=== PATIENT | male | born 1975 | race African-American/Black ===

== ENCOUNTER 2019-11-07 08:04 | Emergency (ER) | payer OTHER ==
[~2019-11-07] VITALS: Ht 190.5 cm; Wt 172.4 kg
[2019-11-07] MEDS ORDERED: BLOOD PRESSURE MED (08:17)
[2019-11-07 12:10] LABS: HEMATOCRIT 39.8 % (42.0-52.0); HEMOGLOBIN 13.4 gm/dL (14.0-18.0); MCH 29.4 pg (26.0-34.0); MCHC 33.6 g/dL (28.0-37.0); MCV 87.6 fL (80.0-100.0); MPV 9.6 fl. (7.2-11.1); RBC 4.55 mil/uL (4.50-6.00); RDW-CV 14.9 % (10.5-14.5); WBC 13.7 thou/uL (4.0-11.0)
[2019-11-07 12:24] LABS: CALCIUM 9.2 mg/dL (8.5-10.1); CREATININE 0.9 mg/dL (0.6-1.3); POTASSIUM 3.8 mmol/L (3.5-5.1)
[2019-11-07] MEDS ORDERED: PERCOCET 5-3251 EACH PO ×3 (13:00→13:04)
[2019-11-07 13:10] VITALS: BP 128/74
== END 2019-11-07 13:10 | disposition home or self-care (01) ==
LOC: M.ERS 08:04 → M.TBA-ER 12:16 → M.ERS 13:10
PROVIDERS: Emergency Medicine Emergency Medical Services
DX: M54.5 Low back pain (principal)

== ENCOUNTER 2019-11-11 09:26 | Inpatient (IN) | payer OTHER ==
[~2019-11-11] VITALS: Ht 182.9 cm; Wt 172.4 kg
[~2019-11-11 09:26] MED LIST: BLOOD PRESSURE MED; PERCOCET 5-3251 EACH PO
[2019-11-11 09:37] VITALS: BP 146/84
[2019-11-11 14:01] VITALS: BP 142/80
[2019-11-11 18:38] LABS: HEMATOCRIT 40.5 % (42.0-52.0); HEMOGLOBIN 13.5 gm/dL (14.0-18.0); MCH 29.2 pg (26.0-34.0); MCHC 33.4 g/dL (28.0-37.0); MCV 87.6 fL (80.0-100.0); NUCLEATED RBCS 0 /100WBC; PLATELET COUNT* 294 thou/uL (150-400); RBC 4.62 mil/uL (4.50-6.00); RDW-CV 14.6 % (10.5-14.5); WBC 13.5 thou/uL (4.0-11.0)
[2019-11-11 18:50] LABS: ALBUMIN 3.3 g/dL (3.4-5.0); CALCIUM 9.3 mg/dL (8.5-10.1); POTASSIUM 4.5 mmol/L (3.5-5.1); TOTAL BILIRUBIN 0.6 mg/dL (<0.1-1.0); TOTAL PROTEIN 8.5 g/dL (6.4-8.2)
[2019-11-11 19:07] LABS: ABSOLUTE LYMPHOCYTES 1.1 thou/uL (0.8-5.3); ABSOLUTE MONOCYTES 0.5 thou/uL (0.0-1.2); ABSOLUTE NEUTROPHILS 11.9 thou/uL (1.6-8.1)
[2019-11-11 19:08] LABS: PLATELET ESTIMATE ADEQUATE
[2019-11-11 20:00] VITALS: BP 134/90
[2019-11-12] VITALS: BP 125/92; BP 130/88
[2019-11-12 04:31] LABS: ABSOLUTE BASOPHILS 0.1 thou/uL (0.0-0.2); ABSOLUTE LYMPHOCYTES 1.8 thou/uL (0.8-5.3); ABSOLUTE MONOCYTES 1.1 thou/uL (0.0-1.2); ABSOLUTE NEUTROPHILS 12.4 thou/uL (1.6-8.1); BASOPHILS 0.4 %; HEMATOCRIT 40.2 % (42.0-52.0); HEMOGLOBIN 13.5 gm/dL (14.0-18.0); LYMPHOCYTES 11.9 %; MCH 29.5 pg (26.0-34.0); MCHC 33.5 g/dL (28.0-37.0); MCV 87.9 fL (80.0-100.0); MONOCYTES 6.9 %; MPV 8.7 fl. (7.2-11.1); NUCLEATED RBCS 0 /100WBC; PLATELET COUNT* 295 thou/uL (150-400); POLYS 80.8 %; RBC 4.58 mil/uL (4.50-6.00); RDW-CV 14.5 % (10.5-14.5); WBC 15.4 thou/uL (4.0-11.0)
[2019-11-12 04:40] LABS: CALCIUM 9.1 mg/dL (8.5-10.1); CREATININE 0.9 mg/dL (0.6-1.3); POTASSIUM 4.2 mmol/L (3.5-5.1)
[2019-11-12 07:50] VITALS: BP 159/63
[2019-11-12] MEDS ORDERED: OXYCODONE PO (11:33)
[2019-11-12 11:34] VITALS: BP 159/63
== END 2019-11-12 13:56 | disposition home or self-care (01) | DRG 552 ==
LOC: M.ERS 09:26 → M.TBA-ER 11:57 → M.2W 14:29
PROVIDERS: ADMIT Internal Medicine
DX: M62.830 Muscle spasm of back (principal); Z68.43 Body mass index [BMI] 50.0-59.9, adult; E66.01 Morbid (severe) obesity due to excess calories; I10 Essential (primary) hypertension; Z79.899 Other long term (current) drug therapy; Z72.89 Other problems related to lifestyle